=== PATIENT | female | born 1965 | race Caucasian/White ===

== ENCOUNTER 2016-11-07 13:53 | Day surgery (SDC) | payer OTHER ==
[~2016-11-07] VITALS: Ht 165.1 cm; Wt 66.5 kg
[~2016-11-07 13:53] MED LIST: ASCO500C7 PO; MULT-552 PO
[2016-11-07 15:20] VITALS: Ht 165.1 cm; Wt 66.5 kg
[2016-11-07] MEDS ORDERED: LORATADINE (15:29)
[2016-11-07] MEDS ORDERED: FISH OIL (15:29)
[2016-11-07] MEDS ORDERED: CALCIUM (15:29)
[2016-11-07] MEDS ORDERED: IBUPROFEN (15:29)
[2016-11-07 17:58] VITALS: BP 117/71; PULSE 38; RESP 25
--- NOTE | 2016-11-07 18:45 | OPPN ---
Date/Time of Note Date/Time of Note DATE: 11/07/16 TIME: 18:42 Proc Note GI Procedure date: Nov 07, 2016 Pre-procedure Diagnosis * Colorectal cancer screening Post-procedure Diagnosis Assessment: * Mild left-sided diverticulosis * Moderate-sized internal hemorrhoids * Otherwise normal colonoscopy to cecum Plan: * High-fiber diet * Annual Hemoccult stool testing * Screening colonoscopy in 10 years Operation Performed * Colonoscopy to cecum Surgeon: JOAO HOWE MD Anesthesia Type: moderate sedation (Versed 4 mg/fentanyl 75 mcg and his IV push ) Estimated blood loss: none Transfusion Required: no Specimen: none Grafts/Implants: none Complications: no Pt Condition post procedure: stable Disposition: PACU Procedure Description After informed consent, with the patient/relatives understanding the procedure, its indications and potential risks and complications, including but not limited to: Allergic reaction, bleeding, perforation, infection, and after all pertinent questions were answered to the patient's satisfaction, the patient/ relatives signed the witnessed informed consent. Following this, premedication was administered slowly IV push under careful cardiovascular and respiratory monitoring with pulse [employer], automatic blood pressure, and property assessment monitor. Once the sedative effect was achieved, the patient was placed in the left lateral decubitus position, digital rectal examination was performed. The colonoscope was then introduced and advanced under visual control throughout all segments of the colon including: the rectum, sigmoid, descending colon, splenic flexure, transverse colon, hepatic flexure, ascending colon and finally reaching the cecum which was clearly identified by transillumination, finger indentation and the ileocecal valve. Careful examination of the mucosa of the lower gastrointestinal tract both on insertion as well as withdrawal of the instrument disclosed the following findings: PREPARATION QUALITY: [Adequate], RECTAL EXAM: The anorectal area was visualized examined and digital rectal examination performed with the following findings: No evidence of perirectal disease, no masses. COLONIC MUCOSA: The mucosa of all segments of the colon was carefully examined and showed the following findings: There is mild diverticulosis of several colon. Moderate size internal hemorrhoids are present. Otherwise the examined mucosa appears within normal limits. There is no evidence of inflammatory changes, polyps or other neoplasms , vascular malformation, or any other abnormality. The instrument was then withdrawn, the patient tolerated the procedure well and was transferred out of the Endoscopy Suite awake and in good condition to continue recovery under observation. JOAO HOWE MD Nov 07, 2016 18:45
[2016-11-07] MEDS ORDERED: MIDAZOLAM 1 MG/ML 2 ML INJ ONE ×2 (18:50)
[2016-11-07] MEDS ORDERED: FENTAnyl 50 MCG/ML VIAL ONE (18:50)
[2016-11-07] MEDS ORDERED: ATROPINE 1 MG/10 ML SYRINGE ONE (18:50)
[2016-11-07 19:04] VITALS: BP 133/83; PULSE 54; RESP 18
== END 2016-11-07 19:26 | disposition home or self-care (01) ==
LOC: GIL 13:53
PROVIDERS: ATTEND Internal Medicine Gastroenterology
DX: Z12.11 Encounter for screening for malignant neoplasm of colon (principal); K57.90 Diverticulosis of intestine, part unspecified, without perforation or abscess without bleeding; K64.8 Other hemorrhoids
CPT/HCPCS: 45378; J0461; J2250; J3010